=== PATIENT | male | born 1980 | race Caucasian/White ===

== ENCOUNTER 2017-06-19 11:46 | Inpatient (IN) | payer MEDICAID ==
[~2017-06-19] VITALS: Ht 167.6 cm; Wt 109.0 kg
[2017-06-19 13:01] LABS: BASOPHIL % 0.2 % (0-2); PLATELET COUNT 193 x10^3mcL (130-400); RED CELL DISTRIBUTION WIDTH 14.3 % (11.5-14.5)
[2017-06-19 13:11] LABS: CALCIUM 9.1 mg/dL (8.5-10.1); CARBON DIOXIDE 28.5 mmol/L (21-32); CHLORIDE SERUM 99 mmol/L (98-107); CREATININE SERUM 0.7 mg/dL (0.7-1.3); GFR1 > 60 mL/min; GLUCOSE SERUM 126 mg/dL (74-106); POTASSIUM SERUM 3.3 mmol/L (3.5-5.1); SODIUM SERUM 136 mmol/L (136-145)
[2017-06-19 13:15] LABS: ALBUMIN 3.9 g/dL (3.4-5.0); ALKALINE PHOSPHATASE 204 U/L (46-116); ALT/SGPT 526 U/L (16-63); AST/SGOT 741 U/L (15-37); BILIRUBIN TOTAL 5.51 mg/dL (0.20-1.00); LIPASE 110 IU/L (73-393)
[2017-06-19 13:16] LABS: TOTAL PROTEIN, SERUM 8.5 g/dL (6.4-8.2)
[2017-06-19 13:59] LABS: UA SPECIFIC GRAVITY 1.025 (1.005-1.035); microscopic required? YES; urine erythrocyte TRACE (NEGATIVE)
[2017-06-19] MEDS ORDERED: CHILDREN'S100 MG/52 PO (14:10)
[2017-06-19 15:57] VITALS: BP 184/112
[2017-06-19 17:05] LABS: PHOSPHOROUS 2.8 mg/dL (2.5-4.9)
[2017-06-19 17:09] LABS: CHOLESTEROL/HDL RATIO 4.4
[2017-06-19 17:15] LABS: AMPHETAMINE QUAL UR NONE DETECTED (NEG <=1000)
[2017-06-19 17:24] LABS: T3 TOTAL 1.27 ng/mL
[2017-06-19 17:25] LABS: FREE T4 1.25 ng/dL (0.76-1.46); FREE THYROXINE INDEX 3.7 ug/dL (1.4-4.5); T4(THYROXINE) 10.7 ug/dL (4.7-13.3)
[2017-06-19 18:09] VITALS: BP 181/107
[2017-06-19 20:00] VITALS: BP 144/99
[2017-06-19 23:31] VITALS: BP 147/85
[2017-06-20 06:33] VITALS: BP 129/80
[2017-06-20 06:46] LABS: BASOPHIL % 0.3 % (0-2); PLATELET COUNT 175 x10^3mcL (130-400)
[2017-06-20 06:52] LABS: RED CELL DISTRIBUTION WIDTH 15.2 % (11.5-14.5)
[2017-06-20 07:01] LABS: ALKALINE PHOSPHATASE 180 U/L (46-116); ALT/SGPT 571 U/L (16-63); AST/SGOT 573 U/L (15-37); BILIRUBIN DIRECT 5.57 mg/dL (0.0-0.2); BILIRUBIN TOTAL 6.75 mg/dL (0.20-1.00); CALCIUM 8.4 mg/dL (8.5-10.1); CARBON DIOXIDE 25.9 mmol/L (21-32); CHLORIDE SERUM 102 mmol/L (98-107); CREATININE SERUM 0.6 mg/dL (0.7-1.3); GFR1 > 60 mL/min; GLUCOSE SERUM 106 mg/dL (74-106); MAGNESIUM 1.9 mg/dL (1.8-2.4); PHOSPHOROUS 2.7 mg/dL (2.5-4.9); POTASSIUM SERUM 3.6 mmol/L (3.5-5.1); SODIUM SERUM 135 mmol/L (136-145); TOTAL PROTEIN, SERUM 6.9 g/dL (6.4-8.2)
[2017-06-20 07:04] LABS: ALBUMIN 2.9 g/dL (3.4-5.0)
[2017-06-20 09:55] VITALS: BP 133/83
[2017-06-20 14:10] VITALS: BP 157/96
[2017-06-20 17:25] VITALS: BP 142/79
[2017-06-21 06:05] VITALS: BP 129/85
[2017-06-21 06:26] LABS: ALKALINE PHOSPHATASE 206 U/L (46-116); ALT/SGPT 498 U/L (16-63); AST/SGOT 378 U/L (15-37); BILIRUBIN TOTAL 6.2 mg/dL (0.20-1.00); CALCIUM 8.7 mg/dL (8.5-10.1); CARBON DIOXIDE 29.9 mmol/L (21-32); CHLORIDE SERUM 102 mmol/L (98-107); CREATININE SERUM 0.7 mg/dL (0.7-1.3); GFR1 > 60 mL/min; GLUCOSE SERUM 83 mg/dL (74-106); MAGNESIUM 2.1 mg/dL (1.8-2.4); PHOSPHOROUS 3.1 mg/dL (2.5-4.9); POTASSIUM SERUM 3.4 mmol/L (3.5-5.1); SODIUM SERUM 138 mmol/L (136-145); TOTAL PROTEIN, SERUM 6.9 g/dL (6.4-8.2)
[2017-06-21 06:27] LABS: ALBUMIN 2.9 g/dL (3.4-5.0)
[2017-06-21 06:40] LABS: BASOPHIL % 0.4 % (0-2); PLATELET COUNT 179 x10^3mcL (130-400); RED CELL DISTRIBUTION WIDTH 15.1 % (11.5-14.5)
[2017-06-21 09:10] VITALS: BP 138/95
[2017-06-21 10:35] VITALS: Ht 167.6 cm; Wt 109.0 kg
[2017-06-21 13:30] VITALS: BP 135/79
[2017-06-21 17:12] VITALS: BP 120/72
[2017-06-21 21:39] VITALS: BP 147/89
[2017-06-22 06:08] VITALS: BP 139/97
[2017-06-22 07:00] LABS: BASOPHIL % 0.7 % (0-2); PLATELET COUNT 176 x10^3mcL (130-400)
[2017-06-22 07:14] LABS: ALKALINE PHOSPHATASE 215 U/L (46-116); ALT/SGPT 381 U/L (16-63); AST/SGOT 207 U/L (15-37); CALCIUM 8.8 mg/dL (8.5-10.1); CARBON DIOXIDE 26.2 mmol/L (21-32); CHLORIDE SERUM 102 mmol/L (98-107); CREATININE SERUM 0.7 mg/dL (0.7-1.3); GFR1 > 60 mL/min; GLUCOSE SERUM 79 mg/dL (74-106); POTASSIUM SERUM 3.9 mmol/L (3.5-5.1); SODIUM SERUM 137 mmol/L (136-145); TOTAL PROTEIN, SERUM 7.1 g/dL (6.4-8.2)
[2017-06-22 07:15] LABS: ALBUMIN 2.8 g/dL (3.4-5.0)
[2017-06-22 10:29] VITALS: BP 155/95
[2017-06-22 18:00] VITALS: BP 145/94
[2017-06-22 22:04] VITALS: BP 139/91
[2017-06-23 06:10] VITALS: BP 139/92
[2017-06-23 06:14] LABS: BASOPHIL % 0.6 % (0-2); PLATELET COUNT 214 x10^3mcL (130-400)
[2017-06-23 06:42] LABS: ALKALINE PHOSPHATASE 231 U/L (46-116); ALT/SGPT 321 U/L (16-63); AST/SGOT 169 U/L (15-37); BILIRUBIN TOTAL 1.47 mg/dL (0.20-1.00); CALCIUM 9.1 mg/dL (8.5-10.1); CARBON DIOXIDE 29.1 mmol/L (21-32); CHLORIDE SERUM 102 mmol/L (98-107); CREATININE SERUM 0.8 mg/dL (0.7-1.3); GFR1 > 60 mL/min; GLUCOSE SERUM 91 mg/dL (74-106); PHOSPHOROUS 4.9 mg/dL (2.5-4.9); POTASSIUM SERUM 3.6 mmol/L (3.5-5.1); SODIUM SERUM 138 mmol/L (136-145); TOTAL PROTEIN, SERUM 7.1 g/dL (6.4-8.2)
[2017-06-23 06:51] LABS: RED CELL DISTRIBUTION WIDTH 15.4 % (11.5-14.5)
[2017-06-23 07:02] LABS: ALBUMIN 2.8 g/dL (3.4-5.0)
[2017-06-23 09:36] VITALS: BP 179/106
[2017-06-23] MEDS ORDERED: ZOF4 PO (13:48)
[2017-06-23] MEDS ORDERED: NOR10T PO (13:49)
[2017-06-23 13:52] VITALS: BP 115/61
[2017-06-23 13:59] VITALS: BP 115/61
[2017-06-23] MEDS ORDERED: LIPI20 PO (14:05)
[2017-06-23] MEDS ORDERED: LISINOPRIL40 MG PO (14:06)
== END 2017-06-23 15:10 | disposition home or self-care (01) ==
LOC: ED 11:46 → DU 14:59 → MU 14:59 → DU 15:42 → MU 06-21 10:04
PROVIDERS: Emergency Medicine; Family Medicine; Internal Medicine Gastroenterology; ADMIT Family Medicine
PROC: 0DD68ZX Extraction of Stomach, Via Natural or Artificial Opening Endoscopic, Diagnostic (ICD-10-PCS; principal; 2017-06-20 10:30)
PROC: 0F798ZZ Dilation of Common Bile Duct, Via Natural or Artificial Opening Endoscopic (ICD-10-PCS; 2017-06-20 10:30)
PROC: 0F798ZZ Dilation of Common Bile Duct, Via Natural or Artificial Opening Endoscopic (ICD-10-PCS; 2017-06-22)
DX: K80.00 Calculus of gallbladder with acute cholecystitis without obstruction (principal); N17.0 Acute kidney failure with tubular necrosis; E43 Unspecified severe protein-calorie malnutrition; K76.6 Portal hypertension; E66.01 Morbid (severe) obesity due to excess calories; F14.20 Cocaine dependence, uncomplicated; K76.0 Fatty (change of) liver, not elsewhere classified; K31.89 Other diseases of stomach and duodenum; I16.0 Hypertensive urgency; N39.0 Urinary tract infection, site not specified; E87.6 Hypokalemia; E78.2 Mixed hyperlipidemia; F10.20 Alcohol dependence, uncomplicated; Z68.38 Body mass index [BMI] 38.0-38.9, adult
CPT/HCPCS: 43235; 43260; 78226; 82962; 83880; 84439; A9537; C1769; G0480; J0360; J1170; J1610; J1885; J1956; J2250; J2270; J2405; J2704; J3490; J7030; J7120; Q0092; Q9967